=== PATIENT | female | born 1950 | race Caucasian/White ===

== ENCOUNTER 2024-08-11 08:31 | Outpatient (CLI) | payer MEDICARE, OTHER | END 2024-08-11 08:32 | disposition home or self-care (01) | LOC: NM 08:31 | PROVIDERS: ATTEND Psychiatry & Neurology Neurology | DX: G31.83 Neurocognitive disorder with Lewy bodies (principal); F02.80 Dementia in other diseases classified elsewhere, unspecified severity, without behavioral disturbance, psychotic disturbance, mood disturbance, and anxiety | CPT/HCPCS: 78803; A9584 ×2 ==